=== PATIENT | male | born 1975 | race Caucasian/White ===

== ENCOUNTER 2017-03-21 23:31 | Emergency (ER) | payer MEDICAID ==
[~2017-03-21] VITALS: Ht 193 cm; Wt 84.8 kg
[2017-03-21 23:59] VITALS: BP 129/77
[2017-03-22] MEDS ORDERED: ACETAMINOPHEN/CODEINE#3 (300/30mg) TAB PO ONE (04:45)
== END 2017-03-22 04:28 | disposition home or self-care (01) ==
LOC: ER 23:34
DX: N48.89 Other specified disorders of penis (principal); T50.905A Adverse effect of unspecified drugs, medicaments and biological substances, initial encounter; Y92.89 Other specified places as the place of occurrence of the external cause

== ENCOUNTER 2017-11-19 02:12 | Emergency (ER) | payer MEDICAID ==
[~2017-11-19] VITALS: Ht 193 cm; Wt 87.1 kg
[2017-11-19] MEDS ORDERED: LIDOCAINE 1% HCL (LOCAL ANESTH.) INJ 20ML MDV ONE (03:03)
[2017-11-19 03:28] LABS: Basophils # (auto) 0 uL; Basophils % (auto) 0.4 % (0.0-2.0); Eosinophils # (auto) 0 uL; Eosinophils % (auto) 0.6 % (0.0-7.0); Hematocrit 38.1 % (41.0-53.0); Hemoglobin 13.3 g/dL (13.5-17.5); Lymphocytes # (auto) 1.9 uL; Lymphocytes % (auto) 40.8 % (10.0-50.0); Mean Corpuscular Hemoglobin 28.8 pg (28.0-32.0); Mean Corpuscular Hgb Conc. 34.8 g/dL (32.0-36.0); Mean Corpuscular Volume 82.8 fL (80.0-100.0); Monocytes # (auto) 0.5 uL; Monocytes % (auto) 11.7 % (0.0-12.0); Neutrophils # (auto) 2.1 uL; Neutrophils % (auto) 46.5 % (37.0-80.0); Nucleated Red Blood Cells % 0.2 %; Platelet Count (auto) 175 10^3/uL (140-450); Red Cell Distribution Width 14.5 % (11.8-14.3); White Blood Cell 4.6 10^3/uL (4.4-10.8)
[2017-11-19 03:45] LABS: Alanine Aminotransferase 88 U/L (16-61); Albumin 3.6 g/dL (3.4-5.0); Amylase 49 U/L (25-115); Anion Gap 10 (5-15); Aspartate Aminotransferase 47 U/L (15-37); BUN/Creatinine Ratio 9.8; Blood Urea Nitrogen 13 mg/dL (7-18); Calcium 8.2 mg/dL (8.5-10.1); Carbon Dioxide 26 mmol/L (21-32); Chloride 107 mmol/L (98-107); GFR African American 76 mL/min; GFR Non-African American 63 mL/min; Glucose 108 mg/dL (74-106); Lipase 67 U/L (73-393); Potassium 4.2 mmol/L (3.5-5.1); Sodium 143 mmol/L (136-145)
[2017-11-19 03:50] LABS: Alkaline Phosphatase 105 U/L (45-117); Bilirubin, Total 1.1 mg/dL (0.2-1.0); Total Protein 7.6 g/dL (6.4-8.2)
[2017-11-19 04:33] VITALS: BP 139/86
== END 2017-11-19 05:23 | disposition home or self-care (01) ==
LOC: ER 02:14
DX: R10.33 Periumbilical pain (principal); R11.2 Nausea with vomiting, unspecified
CPT/HCPCS: 36415; 74176; 80053; 82150; 83690; 84484; 85025; 99285; J2001

== ENCOUNTER 2019-02-08 00:35 | Emergency (ER) | payer MEDICAID ==
[~2019-02-08] VITALS: Ht 193 cm; Wt 93.0 kg
[2019-02-08 01:02] VITALS: BP 112/79
== END 2019-02-08 02:27 | disposition left against medical advice (07) ==
LOC: ER 00:41
DX: M54.9 Dorsalgia, unspecified (principal); Z53.21 Procedure and treatment not carried out due to patient leaving prior to being seen by health care provider

== ENCOUNTER 2019-05-12 03:25 | Emergency (ER) | payer MEDICAID ==
[~2019-05-12] VITALS: Ht 177.8 cm; Wt 72.6 kg
[2019-05-12 04:58] LABS: Urine Bacteria NONE SEEN /hpf (None Seen); Urine Blood Negative /uL (Negative); Urine Mucus FEW (None Seen); Urine Specific Gravity 1.006 (1.001-1.035); Urine WBC <1 /hpf (0 - 3)
[2019-05-12] MEDS ORDERED: LORazepam 0.5 MG TAB PO ONE (07:30)
[2019-05-12 07:38] VITALS: BP 140/75
[2019-05-12 07:39] LABS: Alcohol, Urine < 3.0 mg/dL (0-5); Amphetamine Screen, Urine NEGATIVE (NEGATIVE); Barbiturate Scree,Urine NEGATIVE (NEGATIVE); Benzodiazephine Screen, Urine NEGATIVE (NEGATIVE); Cannabinoid Screen, Urine NEGATIVE (NEGATIVE); Cocaine Screen, Urine NEGATIVE (NEGATIVE); Opiate Scree,Urine NEGATIVE (NEGATIVE); Phencyclidine Screen, Urine NEGATIVE (NEGATIVE)
[2019-05-12] MEDS ORDERED: SODIUM CHLORIDE 0.9% 1,000 ML IV ONE ×2 (08:43)
== END 2019-05-12 09:05 | disposition home or self-care (01) ==
LOC: EDBD 03:25 → EDUNIT# 03:25 → ER 03:29
DX: F41.9 Anxiety disorder, unspecified (principal); K29.70 Gastritis, unspecified, without bleeding
CPT/HCPCS: 71045; 74018; 80307; 81001

== ENCOUNTER 2020-03-08 04:00 | Emergency (ER) | payer MEDICAID ==
[~2020-03-08] VITALS: Ht 180.3 cm; Wt 72.6 kg
[2020-03-08 04:15] VITALS: BP 132/87
[2020-03-08 07:07] LABS: Albumin 4.4 g/dL (3.4-5.0); Amylase 54 U/L (25-115); Anion Gap 6 (5-15); Blood Urea Nitrogen 17 mg/dL (7-18); Carbon Dioxide 26 mmol/L (21-32); Chloride 106 mmol/L (98-107); Glucose 95 mg/dL (74-106); Lipase 71 U/L (73-393); Potassium 3.7 mmol/L (3.5-5.1); Sodium 138 mmol/L (136-145)
[2020-03-08 07:12] LABS: Alanine Aminotransferase 29 U/L (16-61); Alkaline Phosphatase 91 U/L (45-117); Aspartate Aminotransferase 20 U/L (15-37); BUN/Creatinine Ratio 10.8; Bilirubin, Total 0.9 mg/dL (0.2-1.0); Calcium 9.3 mg/dL (8.5-10.1); GFR African American 62 mL/min; GFR Non-African American 51 mL/min; Total Protein 8.5 g/dL (6.4-8.2)
[2020-03-08 07:31] LABS: Basophils # (auto) 0 10 ^3/uL (0-0.2); Eosinophils # (auto) 0 10 ^3/uL (0-0.8); Eosinophils % (auto) 0.4 % (0.0-7.0); Hemoglobin 15.3 g/dL (13.5-17.5); Lymphocytes % (auto) 27.5 % (10.0-50.0); Mean Corpuscular Hgb Conc. 35.6 g/dL (32.0-36.0); Mean Corpuscular Volume 84.4 fL (80.0-100.0); Monocytes # (auto) 0.4 10 ^3/uL (0-1.3); Monocytes % (auto) 12.8 % (0.0-12.0); Neutrophils % (auto) 58.3 % (37.0-80.0); Nucleated Red Blood Cells % 0.3 %; Platelet Count (auto) 209 10^3/uL (140-450); Red Cell Distribution Width 13.2 % (11.8-14.3); White Blood Cell 3.5 10^3/uL (4.4-10.8)
== END 2020-03-08 05:43 | disposition left against medical advice (07) ==
LOC: ER 04:00 → EDBD 04:00 → ER 05:43
DX: R10.84 Generalized abdominal pain (principal); R19.7 Diarrhea, unspecified; Z53.21 Procedure and treatment not carried out due to patient leaving prior to being seen by health care provider
CPT/HCPCS: 36415; 80053; 82150; 83690; 84484; 85025; 93005

== ENCOUNTER 2021-01-03 02:11 | Inpatient (IN) | payer MEDICAID ==
[~2021-01-03] VITALS: Ht 190.5 cm; Wt 81.0 kg
[2021-01-03 03:12] LABS: Basophils # (auto) 0 10 ^3/uL (0-0.2); Basophils % (auto) 0.4 % (0.0-2.0); Eosinophils # (auto) 0 10 ^3/uL (0-0.8); Eosinophils % (auto) 0.4 % (0.0-7.0); Hematocrit 43.5 % (41.0-53.0); Hemoglobin 15.2 g/dL (13.5-17.5); Lymphocytes % (auto) 19.6 % (10.0-50.0); Mean Corpuscular Hgb Conc. 34.8 g/dL (32.0-36.0); Mean Corpuscular Volume 83.3 fL (80.0-100.0); Monocytes # (auto) 0.6 10 ^3/uL (0-1.3); Monocytes % (auto) 10.9 % (0.0-12.0); Neutrophils # (auto) 3.5 10 ^3/uL (1.6-8.6); Neutrophils % (auto) 68.7 % (37.0-80.0); Nucleated Red Blood Cells % 0.1 %; Red Blood Cells 5.23 10^6/uL (4.5-5.90); Red Cell Distribution Width 13.8 % (11.8-14.3); White Blood Cell 5.1 10^3/uL (4.4-10.8)
[2021-01-03 03:18] LABS: Albumin 4.1 g/dL (3.4-5.0); BUN/Creatinine Ratio 8.2; Calcium 9.2 mg/dL (8.5-10.1); Potassium 4.2 mmol/L (3.5-5.1)
[2021-01-03 03:25] LABS: Bilirubin, Total 0.9 mg/dL (0.2-1.0); Total Protein 8.2 g/dL (6.4-8.2)
[2021-01-03] MEDS ORDERED: LORazepam 0.5 MG TAB PO ONE (06:15)
[2021-01-03] MEDS ORDERED: ONDANSETRON HCL 4 MG/2 ML VIAL IV PRN (07:15)
[2021-01-03] MEDS ORDERED: MORPHINE SULFATE 4 MG/ML SYR/VIAL IV PRN (07:15)
[2021-01-03] MEDS ORDERED: NITROGLYCERIN 0.4 MG SL TAB SL PRN (07:45)
[2021-01-03] MEDS ORDERED: LORazepam 2MG/ML-1ML VIAL IV PRN (07:45)
[2021-01-03] MEDS ORDERED: MORPHINE SULFATE INJECTION 2 MG/ML SYRG IV PRN (07:45)
[2021-01-03] MEDS: SODIUM CHLORIDE 0.9% 1,000 ML IV SCH ×3 (07:46→23:55)
[2021-01-03 07:49] LABS: Basophils # (auto) 0 10 ^3/uL (0-0.2); Basophils % (auto) 0.3 % (0.0-2.0); Eosinophils # (auto) 0 10 ^3/uL (0-0.8); Eosinophils % (auto) 0.2 % (0.0-7.0); Hematocrit 43.9 % (41.0-53.0); Hemoglobin 14.9 g/dL (13.5-17.5); Lymphocytes # (auto) 0.9 10 ^3/uL (0.4-5.4); Lymphocytes % (auto) 19.7 % (10.0-50.0); Mean Corpuscular Hemoglobin 28.4 pg (28.0-32.0); Mean Corpuscular Hgb Conc. 33.9 g/dL (32.0-36.0); Mean Corpuscular Volume 83.9 fL (80.0-100.0); Monocytes # (auto) 0.5 10 ^3/uL (0-1.3); Monocytes % (auto) 11.1 % (0.0-12.0); Neutrophils # (auto) 3.2 10 ^3/uL (1.6-8.6); Neutrophils % (auto) 68.7 % (37.0-80.0); Nucleated Red Blood Cells % 0.1 %; Red Blood Cells 5.23 10^6/uL (4.5-5.90); Red Cell Distribution Width 13.8 % (11.8-14.3); White Blood Cell 4.6 10^3/uL (4.4-10.8)
[2021-01-03 08:08] LABS: Potassium 4.4 mmol/L (3.5-5.1)
[2021-01-03 08:15] LABS: Albumin 3.7 g/dL (3.4-5.0); BUN/Creatinine Ratio 10.2; Bilirubin, Total 0.8 mg/dL (0.2-1.0); Calcium 8.7 mg/dL (8.5-10.1)
[2021-01-03] MEDS: FAMOTIDINE (10MG/ML) 2ML VL IV SCH (10:19)
[2021-01-03] MEDS ORDERED: GASTROGRAFIN 120 ML SOL ONE (14:29)
[2021-01-03 17:00] VITALS: BP 128/94
[2021-01-03 20:50] VITALS: BP 123/82
[2021-01-04 04:32] VITALS: BP 111/70
[2021-01-04 06:01] LABS: Basophils # (auto) 0 10 ^3/uL (0-0.2); Basophils % (auto) 0.5 % (0.0-2.0); Eosinophils # (auto) 0.1 10 ^3/uL (0-0.8); Eosinophils % (auto) 1.8 % (0.0-7.0); Hematocrit 39.1 % (41.0-53.0); Hemoglobin 13.5 g/dL (13.5-17.5); Lymphocytes # (auto) 1.1 10 ^3/uL (0.4-5.4); Lymphocytes % (auto) 26.5 % (10.0-50.0); Mean Corpuscular Hemoglobin 28.8 pg (28.0-32.0); Mean Corpuscular Hgb Conc. 34.5 g/dL (32.0-36.0); Mean Corpuscular Volume 83.5 fL (80.0-100.0); Monocytes # (auto) 0.6 10 ^3/uL (0-1.3); Monocytes % (auto) 15.8 % (0.0-12.0); Neutrophils # (auto) 2.2 10 ^3/uL (1.6-8.6); Neutrophils % (auto) 55.4 % (37.0-80.0); Red Blood Cells 4.68 10^6/uL (4.5-5.90); Red Cell Distribution Width 13.9 % (11.8-14.3)
[2021-01-04 06:32] LABS: Albumin 3.6 g/dL (3.4-5.0); BUN/Creatinine Ratio 12.8; Bilirubin, Total 0.7 mg/dL (0.2-1.0); Calcium 8.6 mg/dL (8.5-10.1); Total Protein 7.3 g/dL (6.4-8.2)
[2021-01-04] MEDS: SODIUM CHLORIDE 0.9% 1,000 ML IV SCH (08:15)
[2021-01-04 09:00] VITALS: BP 110/67
[2021-01-04] MEDS: FAMOTIDINE (10MG/ML) 2ML VL IV SCH (09:55)
[2021-01-04 13:45] VITALS: BP 113/66
== END 2021-01-04 13:14 | disposition home or self-care (01) | DRG 247 ==
LOC: ER 02:11 → EDBD 02:11 → OVERFLOW 07:34 → WEST WING 16:54
PROVIDERS: ADMIT Nurse Practitioner Family; ATTEND Family Medicine
DX: K56.690 Other partial intestinal obstruction (principal); Z20.822 Contact with and (suspected) exposure to COVID-19
CPT/HCPCS: 36415; 74176; 74250; 80053; 83036; 84484; 85025; 87426; 93005; 96374; G0378; J3490